=== PATIENT | female | born 1995 | race Caucasian/White ===

== ENCOUNTER 2016-06-30 12:40 | Emergency (ER) | payer OTHER ==
--- NOTE | ~2016-06-30 | US67 ---
[facility] A Service of [facility] & [facility] RADIOLOGY TEXT RESULTS PATIENT: MCKAY VACA LOCATION: SED : [birth year] UNIT #: [id number] AGE: [address]: Faheem Griffin MD SEX: F ORDER DR: [id number] [place] [id number] E MR#: [id number] Acc #: [id number] NAME: MCKAY VACA. : 1995 SEX: F STUDY DATE/TIME: 06/30/2016 14:12 UNIT: SED ROOM: STUDY DESCRIPTION: Gallbladder Attending Physician: Faheem Griffin M.D. Ordering Physician: Faheem Griffin M.D. Primary Care Physician: Aminah Ribeiro M.D. MEDICAL IMAGING REPORT This report is preliminary unless electronic signature is present. EXAM Gallbladder ultrasound 06/30/2016 HISTORY Right upper quadrant abdominal pain for 3 days. FINDINGS Ultrasound examination of the gallbladder is negative. There is no cholelithiasis, gallbladder wall thickening, or bile duct dilatation. The visualized liver is negative. IMPRESSION Negative gallbladder ultrasound examination. Dictated by... Jonel Tran M.D. THIS IS AN ELECTRONICALLY VERIFIED REPORT Jonel Tran M.D. at 07/01/2016 4:59 PM KRT/carol TD: 06/30/2016 16:07 JOB #: [id number] MEDICAL IMAGING REPORT Page 1 of 1
[~2016-06-30 12:40] MED LIST: NO MEDICATIONS; VOLTAREN75 MG PO
[2016-06-30 13:11] LABS: URINE APPEARANCE CLEAR; URINE BILIRUBIN NEG (NEG); URINE COLOR YELLOW; URINE GLUCOSE NEG (NORM); URINE KETONE 1+ (NEG); URINE LEUKOCYTE ESTERASE NEG (NEG); URINE NITRATE NEG (NEG); URINE PH 6.5 (5-8); URINE PROTEIN NEG (NEG); URINE SOURCE CLEAN CATCH; URINE UROBILINOGEN 0.2 MG/DL (NORM)
[2016-06-30 13:12] LABS: MICRO INDICATED? NO; URINE BLOOD NEG (NEG)
[2016-06-30 13:19] LABS: BASOPHIL% 0.6 % (0-2.5); EOSINOPHIL% 0.9 % (0.0-7.0); HEMATOCRIT 42.2 % (35.0-45.0); HEMOGLOBIN 14.6 gm/dL (12.0-16.0); LYMPHOCYTE# 2.1 X10e3 (1.0-3.5); LYMPHOCYTE% 38.2 % (17.0-45.0); MEAN CELL VOLUME 86.8 FL (83-96); MEAN CORPUSCULAR HEMOGLOBIN 30.1 PG (28-34); MEAN CORPUSCULAR HGB CONC 34.6 g/dL (30-36); MEAN PLATELET VOLUME 8.4 FL (6.5-11.5); MONOCYTE# 0.3 X10e3 (0-1.0); MONOCYTE% 5.4 % (3.0-12.0); NEUTROPHIL% 54.9 % (40-75); PLATELET COUNT 203 X10e3 (140-420); RED BLOOD COUNT 4.87 X10e (3.90-5.30); RED CELL DISTRIBUTION WIDTH 12.8 % (11.0-15.5); WHITE BLOOD COUNT 5.5 X10e3 (4.0-10.5)
[2016-06-30 13:22] LABS: DIFF IND NO
[2016-06-30 13:39] LABS: ALBUMIN SERUM 4.8 g/dL (3.5-5.0); BILIRUBIN, DIRECT 0.2 mg/dL (0.0-0.2); BILIRUBIN,INDIRECT 1.1 mg/dL (0.0-0.9); BILIRUBIN,TOTAL 1.3 mg/dL (0.2-2.0); BUN/CREATININE RATIO 16.66; CALCIUM SERUM 9.3 mg/dL (8.4-10.2); CREATININE SERUM 0.6 mg/dL (0.6-1.4); GLOM FILT RATE Estimated 132.1 mL/min (>60); POTASSIUM 3.7 mmol/L (3.5-5.1); PROTEIN TOTAL SERUM 6.8 g/dL (6.0-8.3)
== END 2016-06-30 15:20 | disposition home or self-care (01) ==
LOC: SED 12:40
PROVIDERS: Emergency Medicine
DX: K29.00 Acute gastritis without bleeding (principal); F17.200 Nicotine dependence, unspecified, uncomplicated
CPT/HCPCS: 76705; 80048; 80076; 81003; 83690; 84703; 85025; 96361; 96374; 96375; 99284; J2405